=== PATIENT | female | born 1985 | race African-American/Black ===

== ENCOUNTER 2016-08-27 20:32 | Emergency (ER) | payer OTHER ==
[2016-08-27 21:03] VITALS: BP 130/61; PULSE 75; TEMP 98.1; BMI 31.2
[2016-08-27 22:11] LABS: URINE APPEARANCE CLEAR; URINE BILIRUBIN NEGATIVE (NEGATIVE); URINE COLOR DK. RED; URINE GLUCOSE (UA) NEGATIVE (NEGATIVE); URINE KETONE TRACE (NEGATIVE); URINE UROBILINOGEN 2.0 E.U/dl E.U./dl (0.2-1.0)
[2016-08-27 22:14] LABS: URINE BLOOD 3+ (NEGATIVE); URINE LEUK ESTERASE 2+ (NEGATIVE); URINE NITRITE POSITIVE (NEGATIVE); URINE PROTEIN 3+ (NEGATIVE)
[2016-08-27 22:31] LABS: BASOPHIL 0.6 % (0-2.0); EOSINOPHIL 1.8 % (0-4.5); MCHC 29.4 g/dl (32.0-36.0); MEAN CELL VOLUME 58.2 fl (80-96); MEAN PLT VOLUME 9.2 fl (7.5-11.1); NEUTROPHILS 60.6 % (42.8-82.8); PLATELET COUNT 339 K/MM3 (134-434); RDW 21.3 % (11.6-15.6); WHITE BLOOD COUNT 9.4 K/mm3 (4.0-10.0)
[2016-08-27 22:32] LABS: MCH 17.1 pg (25.7-33.7)
--- NOTE | 2016-08-27 22:56 | PDOC ---
[id number] 4d No Limitations - History of Present Illness Initial Comments: 08/28/16 01:27 The patient is a 31-year-old female with a significant past medical history of anemia (iron deficiency), blood transfusions (X17), asthma, and pneumonia, who presents to the emergency department complaining of excessive vaginal bleeding that began 2 days ago. The patient states her menstrual period began 2 days ago and describes it as normal for the first hour. However, she states she has been bleeding excessively since then. The patient reports she has been changing her pad every 1-2 hours. She reports associated constant pelvic pain. She also reports syncopic episodes and a constant headache on the left side of her head. The patient reports a history of irregular periods and regular blood transfusions. Before 2 days ago, her last menstrual period was in April. The patient reports no changes in appetite. She denies any chest pain or shortness of breath. She denies any dysuria, frequency, or urgency. She denies dizziness, fever, or chills. Allergies: Iron(nausea/vomiting/ constipation) VISUAL MERCHANDISING SPECIALIST: Dr. Lorna Sung [phone] Social History: No history of smoking, recreational drug use, or ETOH consumption <Gustavo Aviles - Last Filed: 08/28/16 01:31> <Mindi Barkley - Last Filed: 08/28/16 03:59> - General Chief Complaint: Vaginal Bleeding Stated Complaint: VAGINAL BLEEDING/BODY ACHE/LIGHTHEADED Time Seen by Provider: 08/27/16 22:55 Past History <Gustavo Aviles - Last Filed: 08/28/16 01:31> - Past Medical History Anemia: Yes (IRON DEF) Asthma: Yes Cancer: No Cardiac Disorders: No CVA: No COPD: (pneumonia) CHF: No Dementia: No Diabetes: No GI Disorders: No Disorders: No HTN: No Hypercholesterolemia: No Liver Disease: No Seizures: No Thyroid Disease: No Other medical history: blood transfusions x 17 - Surgical History Abdominal Surgery: No Appendectomy: No Cardiac Surgery: No Cholecystectomy: No Lung Surgery: No Neurologic Surgery: No Orthopedic Surgery: No - Reproductive History (#): 2 Para: 0 Dysfunctional Uterine Bleeding: Yes Therapeutic (s) & number: No Spontaneous : 2 - Immunization History Immunization Up to Date: Yes - Psycho/Social/Smoking Cessation Hx Anxiety: No Suicidal Ideation: No Smoking Status: No Smoking History: Never smoked Have you smoked in the past 12 months: No Number of Cigarettes Smoked Daily: 0 Cigars Per Day: 0 Information on smoking cessation initiated: No Hx Alcohol Use: No Drug/Substance Use Hx: No Substance Use Type: None Hx Substance Use Treatment: No <BarkleyMindi - Last Filed: 08/28/16 03:59> - Past Medical History Allergies/Adverse Reactions: Allergies Allergy/AdvReac Type Severity Reaction Status Date / Time No Known Drug Allergies Allergy Mild Verified 08/27/16 21:00 Home Medications: Ambulatory Orders Sulfamethoxazole/Trimethoprim [Bactrim Ds -] 1 tab PO BID #14 tablet 08/27/16 Review of Systems - Review of Systems Able to Perform ROS?: Yes Comments:: 08/28/16 01:31 GENERAL/CONSTITUTIONAL: No fever or chills. No weakness. HEAD, EYES, EARS, NOSE AND THROAT: No change in vision. No ear pain or discharge. No sore throat. CARDIOVASCULAR: No chest pain or shortness of breath. RESPIRATORY: No cough, wheezing, or hemoptysis. GASTROINTESTINAL: No nausea, vomiting, diarrhea or constipation. GENITOURINARY: +Excessive menstrual bleeding. No dysuria, frequency, or change in urination. MUSCULOSKELETAL: No joint or muscle swelling or pain. No neck or back pain. SKIN: No rash NEUROLOGIC: +Headache. +Lightheadedness. No vertigo, loss of consciousness, or change in strength/sensation. ENDOCRINE: No increased thirst. No abnormal weight change. HEMATOLOGIC/LYMPHATIC: No anemia, easy bleeding, or history of blood clots. ALLERGIC/IMMUNOLOGIC: No hives or skin allergy. <Gustavo Aviles - Last Filed: 08/28/16 01:31> *Physical Exam - Vital Signs Last Vital Signs Temp Pulse Resp BP Pulse Ox 98.1 F 75 14 130/61 100 08/27/16 21:01 08/27/16 21:01 08/27/16 21:01 08/27/16 21:01 08/27/16 21:01 - Physical Exam Comments: 08/28/16 01:31 GENERAL: The patient is awake, alert, and fully oriented, in no acute distress. HEAD: Normal with no signs of trauma. EYES: Pupils equal, round and reactive to light, extraoccular movements intact, sclera anicteric, conjunctiva clear with no pallor. ENT: Ears normal, nares patent, oropharynx clear without exudates. Moist mucous membranes. NECK: Normal range of motion, supple without lymphadenopathy, JVD, or masses. LUNGS: Breath sounds equal, clear to auscultation bilaterally. No wheeze/ crackles. HEART: Regular rate and rhythm, normal S1 and S2 without murmur or rub. ABDOMEN: Soft/nontender/nondistended. BS wnl. No guarding or rebound. No palpable masses. No hepatosplenomegaly. EXTREMITIES: Normal range of motion, no edema. No clubbing or cyanosis. No cords, erythema, or tenderness. NEUROLOGICAL: Cranial nerves II through XII grossly intact. Normal speech, normal gait. PSYCH: Normal mood, normal affect. SKIN: Warm, Dry, normal turgor, no rashes or lesions noted. <Gustavo Aviles - Last Filed: 08/28/16 01:31> - Vital Signs Last Vital Signs Temp Pulse Resp BP Pulse Ox 98.1 F 75 14 130/61 100 08/27/16 21:01 08/27/16 21:01 08/27/16 21:01 08/27/16 21:01 08/27/16 21:01 <Mindi Barkley - Last Filed: 08/28/16 03:59> ED Treatment Course - LABORATORY CBC & Chemistry Diagram: 08/27/16 22:10 08/27/16 22:10 - ADDITIONAL ORDERS Additional order review: Laboratory Results 08/27/16 08/27/16 22:10 21:50 Sodium 139 Potassium 4.0 Chloride 106 Carbon Dioxide 25 Anion Gap 8 BUN 13 D Creatinine 0.6 Creat Clearance w eGFR > 60 Random Glucose 82 Calcium 8.4 L Total Bilirubin 0.3 D AST 16 ALT 15 Alkaline Phosphatase 89 Total Protein 7.7 D Albumin 3.7 D Urine Color Dk. red Urine Appearance Clear Urine pH 5.0 D Ur Specific [place] >= 1.030 Urine Protein 3+ H Urine Glucose (UA) Negative Urine Ketones Trace H Urine Blood 3+ H Urine Nitrite Positive Urine Bilirubin Negative Urine Urobilinogen 2.0 e.u/dl H Ur Leukocyte Esterase 2+ H Urine RBC Tntc Urine WBC 25-30 Ur Epithelial Cells Few Urine HCG, Qual Negative 08/27/16 22:10 RBC 4.76 D MCV 58.2 L MCHC 29.4 L RDW 21.3 H D MPV 9.2 Neutrophils % 60.6 Lymphocytes % 30.4 Monocytes % 6.6 Eosinophils % 1.8 Basophils % 0.6 - Medications Given in the ED: ED Medications Discontinued Medications Generic Name Dose Route Start Last Admin Trade Name Freq PRN Reason Stop Dose Admin Trimethoprim/Sulfamethoxazole 1 each 08/27/16 23:41 08/27/16 23:52 Bactrim Ds - PO 08/27/16 23:42 1 each ONCE ONE Administration <Gustavo Aviles - Last Filed: 08/28/16 01:31> - LABORATORY CBC & Chemistry Diagram: 08/27/16 22:10 08/27/16 22:10 - ADDITIONAL ORDERS Additional order review: Laboratory Results 08/27/16 21:50 Urine Color Dk. red Urine Appearance Clear Urine pH 5.0 D Ur Specific [place] >= 1.030 Urine Protein 3+ H Urine Glucose (UA) Negative Urine Ketones Trace H Urine Blood 3+ H Urine Nitrite Positive Urine Bilirubin Negative Urine Urobilinogen 2.0 e.u/dl H Ur Leukocyte Esterase 2+ H Urine HCG, Qual Negative 08/27/16 22:10 RBC 4.76 D MCV 58.2 L MCHC 29.4 L RDW 21.3 H D MPV 9.2 Neutrophils % 60.6 Lymphocytes % 30.4 Monocytes % 6.6 Eosinophils % 1.8 Basophils % 0.6 <Mindi Barkley - Last Filed: 08/28/16 03:59> Medical Decision Making - Medical Decision Making 08/28/16 03:54 Patient Name: Ashlie Hickey THIS IS A PRELIMINARY REPORT FROM [facility]ELOP[facility] DATE OF SERVICE: 2016-08-28 00:12:53.0 IMAGES: 25 EXAM: Ultrasound pelvis non-OB transabdominal duplex HISTORY:Dysfunctional uterine bleeding COMPARISON: None. FINDINGS:There was satisfactory sonographic imaging of the pelvic structures. Transabdominal and transvaginal examination was done The uterus is unremarkable [id number] x 3.8 x 4.9cm. No myometrial masses are seen to suggest fibroids. The endometrium is not abnormally thickened measuring 0.61cm. The right ovary measures 3.2 x 1.9 x 2.5 cm. Follicles are seen in both ovaries. There is no ovarian mass either solid or cystic. The left ovary measures 4.9 x 3.4 x 3.4cm. There is a septated cyst in the left every measuring 3.8 x 3.2 x 2.9 cm. There is no free fluid in the pelvis. Ovarian Doppler evaluation Duplex sonography of both ovaries was performed. There was satisfactory arterial blood flow demonstrated in both ovaries. There is no evidence of torsion. IMPRESSION: The uterus is unremarkable. The ovaries were without torsion. There is a 3.8 cm septated cyst the left every. Suggest followup examinations. No other findings are seen. THIS DOCUMENT HAS BEEN ELECTRONICALLY SIGNED Pt has a hx of heavy menses. She states that she filled an overnight maxi pad in 2 hrs. States that she doesntt feel dizzy but that she wants to make sure that she is not getting anemic to the point that she will require a blood transfusion as she has required in the past. Pt has a Hb of 8.2, better than her usual 6.4 and 7.5; pt's exam is normal, her neuro exam is nornal; She has mild abdominal pain. She takes only tylenol for pain. SHe was given a dose of percocet here. Pt will be asked to follow with her weighbridge operator, as her sono is normal and her blood tests are stable. <Mindi Barkley - Last Filed: 08/28/16 03:59> *DC/Admit/Observation/Transfer - Attestations Scribe Attestion: 08/28/16 01:27 Documentation prepared by Gustavo Aviles, acting as medical director occupational health for Mindi Barkley MD. <Gustavo Aviles - Last Filed: 08/28/16 01:31> - Discharge Dispostion Admit: No <Mindi Barkley - Last Filed: 08/28/16 03:59> Diagnosis at time of Disposition: Abdominal pain, Ovarian cyst, Menometrorrhagia - Discharge Dispostion Disposition: HOME Condition at time of disposition: Improved - Prescriptions Prescriptions: Sulfamethoxazole/Trimethoprim [Bactrim Ds -] 1 tab PO BID #14 tablet - Referrals Referrals: Kieran Sutherland [Primary Care Provider] - - Patient Instructions Printed Discharge Instructions: DI for Abnormal Uterine Bleeding, DI for Ovarian Cyst, DI for Urinary Tract Infection (UTI) - Post Discharge Activity Work/School Note: Back to Work
[2016-08-27 22:57] LABS: ALBUMIN 3.7 g/dl (3.4-5.0); ALK PHOS 89 U/L (45-117); ANION GAP 8 (8-16); BILIRUBIN,TOTAL 0.3 mg/dL (0.2-1.0); CALCIUM 8.4 mg/dL (8.5-10.1); CO2 25 mmol/L (21-32); CREATININE 0.6 mg/dL (0.55-1.02); GLUCOSE,RANDOM 82 mg/dL (74-106); SGOT/AST 16 U/L (15-37); SGPT/ALT 15 U/L (12-78); TOT PROT 7.7 g/dl (6.4-8.2)
[2016-08-27 22:59] LABS: URINE RBC TNTC /hpf (0-3); URINE WBC 25-30 /hpf (3-5)
[2016-08-27 23:12] LABS: ANISOCYTOSIS 3+; MICROCYTOSIS 3+; PLATELET ESTIMATE ADEQUATE (NORMAL); POLYCHROMASIA 3+
[2016-08-27] MEDS ORDERED: SULFAMETHOXAZOLE/TRIMETHOPRIM 800MG/160MG D.S. TABLET PO ONE (23:41)
[2016-08-27] MEDS ORDERED: SULFAMETHOXAZOLE/TRIMETHOPRIM 800MG/160MG D.S. TABLET ONE (23:53)
[2016-08-28] MEDS ORDERED: OXYCODONE/APAP 5/325MG COMBO TABLET PO ONE (02:10)
[2016-08-28] MEDS ORDERED: OXYCODONE/APAP 5/325MG COMBO TABLET ONE (02:16)
== END 2016-08-28 02:18 | disposition home or self-care (01) ==
LOC: JER 20:32
DX: R55 Syncope and collapse (principal); N92.1 Excessive and frequent menstruation with irregular cycle; N83.292 Other ovarian cyst, left side
CPT/HCPCS: 36415; 76856-TC; 80053; 81003; 81015; 84703; 85025; 99282-25

== ENCOUNTER 2016-11-16 10:07 | Emergency (ER) | payer OTHER ==
[2016-11-16 10:14] VITALS: BP 122/64; PULSE 75; TEMP 98.2; BMI 31.4
--- NOTE | 2016-11-16 11:19 | PDOC ---
History of Present Illness - General Chief Complaint: Migraine Headache Stated Complaint: MIGRAINES/ LIGHTHEADED Time Seen by Provider: 11/16/16 11:00 History Source: Patient Exam Limitations: No Limitations - History of Present Illness Initial Comments: 11/16/16 11:17 31 yr female with c/o migraine headache for 4 days right side of head . Pt has a history of migraines, anemia, blood transfusions. Pt states no fever no abd pain LMP 1 week ago. Associated Symptoms: reports: denies symptoms Past History - Past Medical History Allergies/Adverse Reactions: Allergies Allergy/AdvReac Type Severity Reaction Status Date / Time No Known Drug Allergies Allergy Mild Verified 11/16/16 10:09 Home Medications: Ambulatory Orders Ferrous Sulfate *Liquid* [Feosol *Liquid*] 10 ml PO BID #60 ml 11/16/16 Naproxen [Naprosyn -] 500 mg PO BID PRN #30 tablet 11/16/16 Anemia: Yes (IRON DEF) Asthma: Yes Cancer: No Cardiac Disorders: No CVA: No COPD: (pneumonia) CHF: No Dementia: No Diabetes: No GI Disorders: No Disorders: No HTN: No Hypercholesterolemia: No Liver Disease: No Seizures: No Thyroid Disease: No Other medical history: migraines - Surgical History Abdominal Surgery: Yes (ectopic) Appendectomy: No Cardiac Surgery: No Cholecystectomy: No Lung Surgery: No Neurologic Surgery: No Orthopedic Surgery: No - Reproductive History (#): 2 Para: 0 Dysfunctional Uterine Bleeding: Yes Therapeutic (s) & number: No Spontaneous : 2 - Immunization History Immunization Up to Date: Yes - Psycho/Social/Smoking Cessation Hx Anxiety: No Suicidal Ideation: No Smoking Status: No Smoking History: Never smoked Have you smoked in the past 12 months: No Number of Cigarettes Smoked Daily: 0 Cigars Per Day: 0 Information on smoking cessation initiated: No Hx Alcohol Use: No Drug/Substance Use Hx: No Substance Use Type: None Hx Substance Use Treatment: No Neuro Specific PMHX - Complaint Specific PMHX Migraine: Yes Review of Systems - Review of Systems Able to Perform ROS?: Yes Is the patient limited Syrian proficient: No Constitutional: No: Symptoms Reported HEENTM: No: Symptoms Reported Respiratory: No: Symptoms reported Cardiac (ROS): No: Symptoms Reported ABD/GI: No: Symptoms Reported : No: Symptoms Reported Musculoskeletal: No: Symptoms Reported Integumentary: No: Symptoms Reported Neurological: Yes: Symptoms reported, Headache, Other (neg photophobia neg phonophobia at present ). No: Ataxia *Physical Exam - Vital Signs Last Vital Signs Temp Pulse Resp BP Pulse Ox 98.2 F 75 18 122/64 100 11/16/16 10:10 11/16/16 10:10 11/16/16 10:10 11/16/16 10:10 11/16/16 10:10 - Physical Exam General Appearance: Yes: Nourished, Appropriately Dressed HEENT: positive: EOMI, ANNETTE, Normal ENT Inspection, TMs Normal, Pharynx Normal Neck: positive: Supple. negative: Tender Respiratory/Chest: positive: Lungs Clear, Normal Breath Sounds Cardiovascular: positive: Regular Rhythm, Regular Rate Gastrointestinal/Abdominal: positive: Normal Bowel Sounds, Soft Musculoskeletal: positive: Normal Inspection Extremity: positive: Normal Capillary Refill, Normal Inspection, Normal Range of Motion Integumentary: positive: Normal Color, Dry, Warm Neurologic: positive: Fully Oriented, Alert, Normal Mood/Affect, Normal Response , Motor Strength 5/5, Finger to Nose (intact ). negative: Sensory Deficit ED Treatment Course - LABORATORY CBC & Chemistry Diagram: 11/16/16 11:01 11/16/16 11:01 Medical Decision Making - Medical Decision Making 11/16/16 11:19 cc: migraine anemia c/o possibly may need blood transfusion no fever no dizzyness steady gait will check labs, IVF reglan, benadryl, toradol (if negative ) 11/16/16 11:54 labs reviewed, pt at baseline EMR reviewed hgb, hct at baseline for pt 11/16/16 16:48 pt improved after meds feels better headache has resolved. Pt is texting on her cell phone no distress. labs reviewed pt agrees she is not at a low level for transfusion. Pt will start taking iron again and follow with pmd. steady gait on dc no dizzyness. *DC/Admit/Observation/Transfer Diagnosis at time of Disposition: Chronic anemia Headache Qualifiers: Headache type: unspecified Headache chronicity pattern: acute headache Intractability: not intractable Qualified Code(s): R51 - Headache - Discharge Dispostion Disposition: HOME Condition at time of disposition: Improved - Prescriptions Prescriptions: Ferrous Sulfate *Liquid* [Feosol *Liquid*] 10 ml PO BID #60 ml Naproxen [Naprosyn -] 500 mg PO BID PRN #30 tablet PRN Reason: Headache - Referrals Referrals: Yessi Raya MD [Primary Care Provider] - - Patient Instructions Additional Instructions: START TAKING IRON PRESCRIBED mix in 8 ounce glass of orange juice FOLLOW WITH YOUR PMD CALL TODAY TO MAKE APPOINTMENT IF YOU DONT HAVE ONE SET UP YET TAKE NAPROSYN FOR HEADACHE NEEDED DRINK PLEANTY OF WATER EAT FOODS AND VEGETABLES HIGH IN IRON RETURN TO ER FOR ANY WORSENING SYMPTOMS
[2016-11-16] MEDS ORDERED: SODIUM CHLORIDE 1,000 ML IV ONE (11:42)
[2016-11-16] MEDS ORDERED: METOCLOPRAMIDE HCL INJECTION 10 MG/2 ML VIAL IVPB ONE (11:43)
[2016-11-16 11:46] LABS: EOSINOPHIL 1.5 % (0-4.5); MCH 16.3 pg (25.7-33.7); MCHC 29.4 g/dl (32.0-36.0); MEAN CELL VOLUME 55.4 fl (80-96); MEAN PLT VOLUME 8.5 fl (7.5-11.1); PLATELET COUNT 369 K/MM3 (134-434); RDW 19.6 % (11.6-15.6); WHITE BLOOD COUNT 7.5 K/mm3 (4.0-10.0)
[2016-11-16] MEDS ORDERED: METOCLOPRAMIDE HCL INJECTION 10 MG/2 ML VIAL ONE (11:50)
[2016-11-16 12:15] LABS: ALBUMIN 3.8 g/dl (3.4-5.0); ALK PHOS 92 U/L (45-117); ANION GAP 8 (8-16); BILIRUBIN,TOTAL 0.3 mg/dL (0.2-1.0); CALCIUM 8.8 mg/dL (8.5-10.1); CO2 28 mmol/L (21-32); CREATININE 0.7 mg/dL (0.55-1.02); GLUCOSE,RANDOM 82 mg/dL (74-106); SGOT/AST 24 U/L (15-37); SGPT/ALT 14 U/L (12-78); TOT PROT 8.4 g/dl (6.4-8.2)
[2016-11-16 14:46] LABS: HYPOCHROMIA 3+
[2016-11-16 14:47] LABS: ANISOCYTOSIS 3+; MICROCYTOSIS 3+; TARGET CELLS 3+
[2016-11-16 22:07] LABS: ERYTHROCYTE SEDIMENTATION RATE 22 mm/hr (0-20)
== END 2016-11-16 12:57 | disposition home or self-care (01) ==
LOC: JERFT 10:07
PROC: 3E033GC Introduction of Other Therapeutic Substance into Peripheral Vein, Percutaneous Approach (ICD-10-PCS; principal; 2016-11-16)
PROC: 3E0337Z Introduction of Electrolytic and Water Balance Substance into Peripheral Vein, Percutaneous Approach (ICD-10-PCS; 2016-11-16)
DX: D64.89 Other specified anemias (principal); R51 Headache
CPT/HCPCS: 36415; 80053; 84703; 85025; 85651; 86850; 86900; 86901; 96361; 96374; 96375; 99281-25

== ENCOUNTER 2017-04-08 18:35 | Emergency (ER) | payer OTHER ==
[2017-04-08 19:10] VITALS: BP 119/71; PULSE 73; TEMP 98.1; BMI 33.6
--- NOTE | 2017-04-08 19:46 | PDOC ---
History of Present Illness - General Chief Complaint: Pain Stated Complaint: STOMACH PAIN Time Seen by Provider: 04/08/17 19:29 History Source: Patient - History of Present Illness Initial Comments: 04/08/17 19:44 32 year old female c/o left suprapubic pain radiating up to left flank pain x 1 week. patient also reports that she has been b/l lower extremity pain x 1 week. patient report flank pain as constant with no relief in pain at home. history of anemia on iron transfusions. last hgb 8 04/08/17 22:06 Past History - Past Medical History Allergies/Adverse Reactions: Allergies Allergy/AdvReac Type Severity Reaction Status Date / Time No Known Drug Allergies Allergy Mild Verified 04/08/17 19:08 Home Medications: Ambulatory Orders Ferrous Sulfate *Liquid* [Feosol *Liquid*] 10 ml PO BID #60 ml 11/16/16 Naproxen [Naprosyn -] 500 mg PO BID PRN #30 tablet 11/16/16 Ibuprofen 600 mg PO QID PRN #14 tablet 04/09/17 Anemia: Yes (IRON DEF) Asthma: Yes Cancer: No Cardiac Disorders: No CVA: No COPD: (pneumonia) CHF: No Dementia: No Diabetes: No GI Disorders: No Disorders: No HTN: No Hypercholesterolemia: No Liver Disease: No Seizures: No Thyroid Disease: No - Surgical History Abdominal Surgery: Yes (ectopic) Appendectomy: No Cardiac Surgery: No Cholecystectomy: No Lung Surgery: No Neurologic Surgery: No Orthopedic Surgery: No - Reproductive History (#): 2 Para: 0 Dysfunctional Uterine Bleeding: Yes Therapeutic (s) & number: No Spontaneous : 2 - Immunization History Immunization Up to Date: Yes - Psycho/Social/Smoking Cessation Hx Anxiety: No Suicidal Ideation: No Smoking Status: No Smoking History: Never smoked Have you smoked in the past 12 months: No Number of Cigarettes Smoked Daily: 0 Cigars Per Day: 0 Information on smoking cessation initiated: No Hx Alcohol Use: No Drug/Substance Use Hx: No Substance Use Type: None Hx Substance Use Treatment: No Review of Systems - Review of Systems Able to Perform ROS?: Yes Is the patient limited Kazakh proficient: No ABD/GI: Yes: Other (suprapubic pain radiating up left flank) *Physical Exam - Vital Signs Last Vital Signs Temp Pulse Resp BP Pulse Ox 98.1 F 73 18 119/71 99 08/18/17 19:08 04/08/17 19:08 04/08/17 19:08 04/08/17 19:08 04/08/17 19:08 - Physical Exam General Appearance: Yes: Appropriately Dressed Respiratory/Chest: positive: Lungs Clear, Normal Breath Sounds Cardiovascular: positive: Regular Rhythm, Regular Rate Gastrointestinal/Abdominal: positive: Normal Bowel Sounds, Soft Musculoskeletal: positive: Normal Inspection, CVA Tenderness (left) Extremity: positive: Normal Capillary Refill, Normal Inspection, Normal Range of Motion Integumentary: positive: Normal Color, Dry, Warm Neurologic: positive: party demonstrator II-XII NML intact, Fully Oriented, Alert, Normal Mood/ Affect, Normal Response, Motor Strength 12/24 ED Treatment Course - LABORATORY CBC & Chemistry Diagram: 04/08/17 21:30 04/08/17 21:30 Progress Note - Progress Note Progress Note: A: left flank pain P: CBC CMP UA +3 blood UCx urine DD: UTI vs. kideny stone vs. MSK pain Medical Decision Making - Medical Decision Making 04/09/17 03:28 US: mildly complex cystic structure extending off the fundus of the uterus into left adnexa. no evidence of ovarian torsion. *DC/Admit/Observation/Transfer Diagnosis at time of Disposition: Flank pain, acute Ovarian cyst Qualifiers: Laterality: left Qualified Code(s): N83.202 - Unspecified ovarian cyst, left side - Discharge Dispostion Disposition: HOME - Prescriptions Prescriptions: Ibuprofen 600 mg PO QID PRN #14 tablet PRN Reason: Moderate Pain - Referrals Referrals: Casey Marrero MD [Staff Physician] - - Patient Instructions Printed Discharge Instructions: DI for Ovarian Cyst Additional Instructions: take ibuprofen every 6 hours as needed for pain follow up with slab puller as soon as possible. return to the ER if symptoms worsen
[2017-04-08 21:39] LABS: MEAN CELL VOLUME 72.8 fl (80-96); MEAN PLT VOLUME 8.8 fl (7.5-11.1); PLATELET COUNT 271 K/MM3 (134-434); WHITE BLOOD COUNT 8.8 K/mm3 (4.0-10.0)
[2017-04-08 21:49] LABS: URINE APPEARANCE SLCLOUDY; URINE BILIRUBIN NEGATIVE (NEGATIVE); URINE BLOOD 3+ (NEGATIVE); URINE COLOR YELLOW; URINE GLUCOSE (UA) NEGATIVE (NEGATIVE); URINE KETONE NEGATIVE (NEGATIVE); URINE LEUK ESTERASE NEGATIVE (NEGATIVE); URINE NITRITE NEGATIVE (NEGATIVE); URINE UROBILINOGEN NEGATIVE mg/dL (0.2-1.0)
[2017-04-08 22:02] LABS: URINE PROTEIN 1+ (NEGATIVE)
[2017-04-08 22:13] LABS: URINE BACTERIA RARE /hpf (NONE SEEN); URINE MUCUS RARE; URINE RBC 1 /hpf (0-3); URINE WBC 8 /hpf (3-5)
[2017-04-08 22:16] LABS: ALBUMIN 3.3 g/dl (3.4-5.0); ANION GAP 6 (8-16); CALCIUM 8.4 mg/dL (8.5-10.1); CO2 28 mmol/L (21-32); CREATININE 0.7 mg/dL (0.55-1.02); GLUCOSE,RANDOM 87 mg/dL (74-106); SGOT/AST 18 U/L (15-37); SGPT/ALT 16 U/L (12-78)
[2017-04-08 22:18] LABS: ALK PHOS 79 U/L (45-117); BILIRUBIN,TOTAL 0.3 mg/dL (0.2-1.0)
[2017-04-09] MEDS ORDERED: KETOROLAC TROMETHAMINE 30 MG/1 ML VIAL IVPUSH ONE (01:56)
[2017-04-09 02:07] LABS: ANISOCYTOSIS 2+; HYPOCHROMIA 2+; MACROCYTOSIS 1+; PLATELET ESTIMATE ADEQUATE (NORMAL)
== END 2017-04-09 03:48 | disposition home or self-care (01) ==
LOC: JER 18:35
PROC: 3E0333Z Introduction of Anti-inflammatory into Peripheral Vein, Percutaneous Approach (ICD-10-PCS; principal; 2017-04-08)
DX: N83.202 Unspecified ovarian cyst, left side (principal); D50.9 Iron deficiency anemia, unspecified; J45.909 Unspecified asthma, uncomplicated
CPT/HCPCS: 36415; 74176; 76830-TC; 80053; 81003; 81015; 84703; 85027; 87086; 96374; 99282-25

== ENCOUNTER 2017-10-22 23:17 | Emergency (ER) | payer OTHER ==
--- NOTE | 2017-10-23 00:04 | PDOC ---
History of Present Illness - General History Source: Patient, Old Records Exam Limitations: No Limitations - History of Present Illness Initial Comments: 10/23/17 00:31 Patient is a 32 year old female with a significant past medical history of anemia (iron deficiency), blood transfusions (X17), asthma, and pneumonia, who presents to the ED with complaints of generalized weakness that began this afternoon while at home. Patient reports experiencing generalized weakness that began this afternoon as well as associated vomiting. She reports experiencing 4 episodes of vomiting this afternoon stating, she vomited all of her previously eaten food. Patient reports experiencing associated throat pain and fever of 102 this afternoon. Denies chest pain, Sob. Denies nausea, vomiting. Denies chills. Denies contact with sick individuals, out of state travelling. Denies any other symptoms. Allergies: None Social history: Works at [employer]. No smoking. No alcohol. No illicit drugs. Surgical history: None PMD: None <Wilner Levine - Last Filed: 10/23/17 00:31> <Mindi Barkley - Last Filed: 10/23/17 06:00> - General Chief Complaint: Cold Symptoms Stated Complaint: FATIGUE Time Seen by Provider: 10/22/17 23:47 Past History <Wilner Levine - Last Filed: 10/23/17 00:31> - Past Medical History Anemia: Yes (IRON DEF) Asthma: Yes Cancer: No Cardiac Disorders: No CVA: No COPD: (pneumonia) CHF: No Dementia: No Diabetes: No GI Disorders: No Disorders: No HTN: No Hypercholesterolemia: No Liver Disease: No Seizures: No Thyroid Disease: No - Surgical History Abdominal Surgery: Yes (ectopic) Appendectomy: No Cardiac Surgery: No Cholecystectomy: No Lung Surgery: No Neurologic Surgery: No Orthopedic Surgery: No - Reproductive History (#): 2 Para: 0 Dysfunctional Uterine Bleeding: Yes Therapeutic (s) & number: No Spontaneous : 2 - Immunization History Immunization Up to Date: Yes - Suicide/Smoking/Psychosocial Hx Smoking Status: No Smoking History: Never smoked Have you smoked in the past 12 months: No Number of Cigarettes Smoked Daily: 0 Cigars Per Day: 0 Information on smoking cessation initiated: No Hx Alcohol Use: No Drug/Substance Use Hx: No Substance Use Type: None Hx Substance Use Treatment: No <Mindi Barkley - Last Filed: 10/23/17 06:00> - Past Medical History Allergies/Adverse Reactions: Allergies Allergy/AdvReac Type Severity Reaction Status Date / Time No Known Drug Allergies Allergy Mild Verified 10/22/17 23:57 Home Medications: Ambulatory Orders Ferrous Sulfate *Liquid* [Feosol *Liquid*] 10 ml PO BID #60 ml 11/16/16 Naproxen [Naprosyn -] 500 mg PO BID PRN #30 tablet 11/16/16 Ibuprofen 600 mg PO QID PRN #14 tablet 04/09/17 Oseltamivir Phosphate [Tamiflu -] 75 mg PO DAILY #10 capsule 10/23/17 Review of Systems - Review of Systems Able to Perform ROS?: Yes Comments:: 10/23/17 00:31 GENERAL/CONSTITUTIONAL: +Fevers. +Generalized weakness. No chills HEAD, EYES, EARS, NOSE AND THROAT: +Sore throat. No change in vision. No ear pain or discharge. CARDIOVASCULAR: No chest pain or shortness of breath. RESPIRATORY: No cough, wheezing, or hemoptysis. GASTROINTESTINAL: +Vomiting. +Nausea. No diarrhea or constipation. GENITOURINARY: No dysuria, frequency, or change in urination. MUSCULOSKELETAL: +Left sided back pain. No joint or muscle swelling or pain. No neck. SKIN: No rash NEUROLOGIC: No headache, vertigo, loss of consciousness, or change in strength/ sensation. ENDOCRINE: No increased thirst. No abnormal weight change. HEMATOLOGIC/LYMPHATIC: No anemia, easy bleeding, or history of blood clots. ALLERGIC/IMMUNOLOGIC: No hives or skin allergy. <Wilner Levine - Last Filed: 10/23/17 00:31> *Physical Exam - Vital Signs Last Vital Signs Temp Pulse Resp BP Pulse Ox 102.6 F H 115 H 16 108/56 96 10/22/17 23:46 10/22/17 23:46 10/22/17 23:46 10/22/17 23:46 10/22/17 23:46 - Physical Exam Comments: 10/23/17 00:31 GENERAL: +Febrile Awake, alert, and fully oriented, in no acute distress HEAD: No signs of trauma EYES: PERRLA, EOMI, sclera anicteric, conjunctiva clear ENT: +Enlarged tonsils. Auricles normal inspection, hearing grossly normal, nares patent, oropharynx without exudates. Moist mucosa NECK: Normal ROM, supple, no lymphadenopathy, JVD, or masses LUNGS: Breath sounds equal, clear to auscultation bilaterally. No wheezes, and no crackles HEART: Regular rate and rhythm, normal S1 and S2, no murmurs, rubs or gallops ABDOMEN: Soft, nontender, normoactive bowel sounds. No guarding, no rebound. No masses EXTREMITIES: +Left flank pain. +Left Flank tenderness to percussion. Normal range of motion, no edema. No clubbing or cyanosis. No cords, erythema, or tenderness NEUROLOGICAL: Cranial nerves II through XII grossly intact. Normal speech, normal gait SKIN: Warm, Dry, normal turgor, no rashes or lesions noted. <Wilner Levine - Last Filed: 10/23/17 00:31> - Vital Signs Last Vital Signs Temp Pulse Resp BP Pulse Ox 102.6 F H 115 H 16 108/56 96 10/22/17 23:46 10/22/17 23:46 10/22/17 23:46 10/22/17 23:46 10/22/17 23:46 <Mindi Barkley - Last Filed: 10/23/17 06:00> ED Treatment Course - LABORATORY CBC & Chemistry Diagram: 10/23/17 00:42 10/23/17 01:27 <Mindi Barkley - Last Filed: 10/23/17 06:00> Medical Decision Making - Medical Decision Making 10/23/17 05:56 Pt comes with cough and cold and body aches. SHe has normal CXR and exam. SHe appears to have influenza. Pt has some nausea and vomiting, but that has passed. SHe was hydrated in the ER and labs demonstrate elevated WBC. We have no flu culture in the ER and she will be teated empirically with Tamiflu , as she likely has flu. <Mindi Barkley - Last Filed: 10/23/17 06:00> *DC/Admit/Observation/Transfer - Attestations Scribe Attestion: 10/23/17 00:31 Documentation prepared by Wilner Levine, acting as medical investigator for Mindi Barkley MD/DO. <Wilner Levine - Last Filed: 10/23/17 00:31> - Discharge Dispostion Admit: No <Mindi Barkley - Last Filed: 10/23/17 06:00> Diagnosis at time of Disposition: Influenza - Discharge Dispostion Disposition: HOME Condition at time of disposition: Stable - Prescriptions Prescriptions: Oseltamivir Phosphate [Tamiflu -] 75 mg PO DAILY #10 capsule - Patient Instructions Printed Discharge Instructions: How to Avoid a Cold or Flu - Post Discharge Activity Forms/Work/School Notes: Back to Work
[2017-10-23 00:09] VITALS: BP 108/56; PULSE 115; BMI 31.1
[2017-10-23] MEDS ORDERED: IBUPROFEN 600 MG TABLET (FP) PO ONE ×2 (00:09→00:30)
[2017-10-23] MEDS ORDERED: ACETAMINOPHEN 1000 MG/100 ML VIAL (NON FORMULARY) IVPB ONE (00:09)
[2017-10-23] MEDS ORDERED: SODIUM CHLORIDE 0.9% 500 ML INFUS.BAG IV ONE (00:09)
[2017-10-23] MEDS ORDERED: OSELTAMIVIR PHOSPHATE 75 MG CAPSULE PO ONE (00:19)
[2017-10-23] MEDS ORDERED: ACETAMINOPHEN INJECTION 100 ML IVPB ONE (00:30)
[2017-10-23 00:49] LABS: BASO % 0.3 % (0-2.0); HEMATOCRIT 30.4 % (32.4-45.2); HEMOGLOBIN 9.5 GM/dL (10.7-15.3); LYMPH % 2.6 % (8-40); MCH 20.5 pg (25.7-33.7); MCHC 31.4 g/dl (32.0-36.0); MEAN CELL VOLUME 65.2 fl (80-96); MEAN PLT VOLUME 8.4 fl (7.5-11.1); NEUT % 92.1 % (42.8-82.8); PLATELET COUNT 374 K/MM3 (134-434); RBC 4.66 M/mm3 (3.60-5.2); RDW 18.1 % (11.6-15.6); WHITE BLOOD COUNT 13.1 K/mm3 (4.0-10.0)
[2017-10-23] MEDS ORDERED: OSELTAMIVIR PHOSPHATE 75 MG CAPSULE ONE (00:49)
[2017-10-23 00:50] LABS: ADD RBC MORPHOLOGY YES
[2017-10-23 01:33] LABS: URINE APPEARANCE CLEAR; URINE BILIRUBIN NEGATIVE (NEGATIVE); URINE BLOOD NEGATIVE (NEGATIVE); URINE COLOR STRAW; URINE GLUCOSE (UA) NEGATIVE (NEGATIVE); URINE KETONE TRACE (NEGATIVE); URINE LEUK ESTERASE NEGATIVE (NEGATIVE); URINE NITRITE NEGATIVE (NEGATIVE); URINE PROTEIN NEGATIVE (NEGATIVE); URINE UROBILINOGEN NEGATIVE mg/dL (0.2-1.0)
[2017-10-23 01:37] LABS: HCG,QUALITATIVE URINE NEGATIVE
[2017-10-23 02:20] LABS: ALBUMIN 3.4 g/dl (3.4-5.0); ANION GAP 12 (8-16); BILIRUBIN,TOTAL 0.6 mg/dL (0.2-1.0); BLOOD UREA NITROGEN 9 mg/dL (7-18); CALCIUM 8.1 mg/dL (8.5-10.1); CHLORIDE 106 mmol/L (98-107); CO2 21 mmol/L (21-32); CREATININE 0.7 mg/dL (0.55-1.02); GLUCOSE,RANDOM 104 mg/dL (74-106); POTASSIUM 3.5 mmol/L (3.5-5.1); SGOT/AST 9 U/L (15-37); SGPT/ALT 7 U/L (12-78); SODIUM 139 mmol/L (136-145)
[2017-10-23 02:21] LABS: ALK PHOS 84 U/L (45-117); TOT PROT 7.3 g/dl (6.4-8.2)
[2017-10-23 04:42] VITALS: TEMP 99.2
== END 2017-10-23 03:11 | disposition home or self-care (01) ==
LOC: JER 23:17
PROC: 3E033GC Introduction of Other Therapeutic Substance into Peripheral Vein, Percutaneous Approach (ICD-10-PCS; principal; 2017-10-22)
PROC: 3E0337Z Introduction of Electrolytic and Water Balance Substance into Peripheral Vein, Percutaneous Approach (ICD-10-PCS; 2017-10-22)
DX: J11.1 Influenza due to unidentified influenza virus with other respiratory manifestations (principal); D50.9 Iron deficiency anemia, unspecified; J45.909 Unspecified asthma, uncomplicated
CPT/HCPCS: 36415; 71046-TC-FY; 80053; 81003; 84703; 85025; 99282-25